=== PATIENT | female | born 1955 | race Caucasian/White ===

== ENCOUNTER 2017-10-21 00:22 | Emergency (ER) | payer MEDICAID, OTHER ==
[~2017-10-21] VITALS: Ht 175.3 cm; Wt 137.0 kg
[2017-10-21 00:27] VITALS: BP 140/62
== END 2017-10-21 02:23 | disposition home or self-care (01) ==
LOC: ED 01:20
DX: I87.2 Venous insufficiency (chronic) (peripheral) (principal); Z72.9 Problem related to lifestyle, unspecified; E66.01 Morbid (severe) obesity due to excess calories; Z68.41 Body mass index [BMI] 40.0-44.9, adult; L03.115 Cellulitis of right lower limb; Z88.6 Allergy status to analgesic agent
CPT/HCPCS: 99283